=== PATIENT | male | born 1980 | race Caucasian/White ===

== ENCOUNTER → 2016-07-09 | Outpatient (CLI) | payer MEDICARE, MEDICAID ==
[~2016-07-09] MED LIST: ADDERALL 30 MG30 MG PO; FLEXERIL10 MG PO; FORTAMET500 MG PO; JARDIANCE10 MG PO; KLONOPIN1 M1 PO; XANAX0.5 MG PO
== END | disposition short-term general hospital (02) ==
LOC: CLNEUR 04:15
DX: M54.2 Cervicalgia (principal)